=== PATIENT | male | born 1950 | race Caucasian/White ===

== ENCOUNTER 2017-12-29 17:12 | Emergency (ER) | payer SELFPAY ==
[2017-12-29 17:12] VITALS: BMI 25.8
[2017-12-29 17:55] VITALS: RESP 18; O2SAT 99
[2017-12-29] MEDS ORDERED: Sodium Chloride 0.9% 1,000 ML IV ONE (18:53)
--- NOTE | 2017-12-29 19:04 | C.PDOC ---
History Of Present Illness 67yo male with no medical history, presents to ED with complaints of abdominal pain and dark stools for the past 4 days. He also reports mild distention of his abdomen. He denies any hematemesis, fever, chills. No other complaints. also reports taking pepto bismol. Time Seen by Provider: 12/29/17 18:46 Chief Complaint (Nursing): Abdominal Pain History Per: Patient History/Exam Limitations: no limitations Onset/Duration Of Symptoms: Days (4) Current Symptoms Are (Timing): Still Present Location Of Pain/Discomfort: Diffuse Past Medical History Reviewed: Historical Data, Nursing Documentation, Vital Signs Vital Signs: Last Vital Signs Temp 98 F 12/29/17 17:52 Pulse 67 12/29/17 17:52 Resp 18 12/29/17 17:52 BP 120/81 12/29/17 17:52 Pulse Ox 99 12/29/17 19:06 - Medical History PMH: Gastritis Surgical History: No Surg Hx Family History: States: Unknown Family Hx - Social History Hx Tobacco Use: Yes Hx Alcohol Use: Yes Hx Substance Use: No - Immunization History Hx Tetanus Toxoid Vaccination: No Hx Influenza Vaccination: No Hx Pneumococcal Vaccination: No Review Of Systems Except As Marked, All Systems Reviewed And Found Negative. Constitutional: Negative for: Fever, Chills Cardiovascular: Negative for: Chest Pain Respiratory: Negative for: Shortness of Breath Gastrointestinal: Positive for: Abdominal Pain, Other (dark stools). Negative for: Hematemesis Physical Exam - Physical Exam Appears: Non-toxic Skin: Normal Color, Warm, Dry Eye(s): bilateral: Normal Inspection Neck: Normal ROM, Supple Cardiovascular: Rhythm Regular Respiratory: Normal Breath Sounds Gastrointestinal/Abdominal: Soft, Tenderness (diffuse abdominal tenderness), Distention Rectal: Other (minimal stool noted in rectal vault) Extremity: Normal ROM Neurological/Psych: Oriented x3 ED Course And Treatment - Laboratory Results Result Diagrams: 12/29/17 19:02 12/29/17 19:02 O2 Sat by Pulse Oximetry: 99 (RA) Pulse Ox Interpretation: Normal Medical Decision Making Medical Decision Making: Impression: Abdominal discomfort, guiac neg. labs imaging pending Plan: -- Labs -- IV Fluids -- Protonix 40mg IVP -- Tylenol 650mg PO 900: pt reassese abd soft nottp pain resolve.d guiac neg, bun/cr, h/h wnl, not suggestive of gi bleed. pt reports using peptobismol, possibly causing dark stool. pt asking for immediate dc does not wish to provide urine, wait in er for further eval, reassess, and obs. Disposition - Disposition Referrals: [facility] [Outside] [facility] [Outside] Parish Andrea MD [Staff Provider] - Disposition: HOME/ ROUTINE Disposition Time: 21:08 Condition: STABLE Additional Instructions: please follow up with specialsit. return to er with worsening symptoms or concerns. Instructions: Acute Abdominal Pain (DC), Constipation (DC) Forms: [employer] (Latvian) - Clinical Impression Clinical Impression: Abdominal pain - Scribe Statement The provider has reviewed the documentation as recorded by the Scribe (Charlette Haqeu) Provider Attestation: All medical record entries made by the Scribe were at my direction and personally dictated by me. I have reviewed the chart and agree that the record accurately reflects my personal performance of the history, physical exam, medical decision making, and the department course for this patient. I have also personally directed, reviewed, and agree with the discharge instructions and disposition.
[2017-12-29 19:11] LABS: BASO % 0.6 % (0.0-2.0); EOS # 0.2 K/uL (0.0-0.7); EOS % 5.6 % (0.0-4.0); HEMOGLOBIN 12.8 g/dL (12.0-18.0); LYMPH # 1.2 K/uL (1.0-4.3); MEAN CELL VOLUME 78.1 fL (80.0-94.0); MEAN CORPUSCULAR HEMOGLOBIN 25.9 pg (27.0-31.0); MEAN CORPUSCULAR HGB CONC 33.1 g/dL (33.0-37.0); MEAN PLATELET VOLUME 8.6 fL (7.2-11.7); MONO # 0.3 K/uL (0.0-0.8); MONO % 6.1 % (0.0-10.0); NEUT # 2.4 K/uL (1.8-7.0); NEUT % 57.7 % (50.0-75.0); RBC 4.94 Mil/uL (4.40-5.90); RED CELL DISTRIBUTION WIDTH 16.7 % (11.5-14.5); WHITE BLOOD COUNT 4.1 K/uL (4.8-10.8)
[2017-12-29 19:20] LABS: ALB/GLOB RATIO 1.2 (1.0-2.1); ALBUMIN 3.9 g/dL (3.5-5.0); ALT/SGPT 19 U/L (21-72); AST/SGOT 19 U/L (17-59); BLOOD UREA NITROGEN 14 mg/dL (9-20); CALCIUM 8.5 mg/dl (8.6-10.4); GFR AFRICAN-AMERICAN > 60; GFR NON-AFRICAN AMERICAN > 60; LIPASE 57 U/L (23-300)
[2017-12-29] MEDS ORDERED: Sodium Chloride 0.9% 1,000 ML ONE (19:28)
[2017-12-29] MEDS ORDERED: Iodixanol 320 MG/ML 100 ML BOTTLE IV ONE (19:57)
[2017-12-29 21:32] VITALS: BP 151/87; PULSE 58; TEMP 97.6
--- NOTE | 2017-12-30 08:34 | CT ---
PROCEDURE: CT Abdomen and Pelvis with contrast HISTORY: abd distention COMPARISON: None. TECHNIQUE: Contrast dose: 100 mL Visipaque 320 Radiation dose: Total exam DLP = 617.75 mGy-cm. This CT exam was performed using one or more of the following dose reduction techniques: Automated exposure control, adjustment of the mA and/or kV according to patient size, and/or use of iterative reconstruction technique. FINDINGS: LOWER THORAX: Bilateral dependent lower lobe atelectasis. LIVER: Unremarkable. No gross lesion or ductal dilatation. GALLBLADDER AND BILE DUCTS: Unremarkable. PANCREAS: Unremarkable. No gross lesion or ductal dilatation. SPLEEN: Unremarkable. ADRENALS: Unremarkable. No mass. KIDNEYS AND URETERS: Unremarkable. No hydronephrosis. No solid mass. VASCULATURE: Unremarkable. No aortic aneurysm. BOWEL: Mild retained feces. No bowel obstruction. No abnormal bowel loops. APPENDIX: Normal appendix. PERITONEUM: Unremarkable. No free fluid. No free air. LYMPH NODES: Unremarkable. No enlarged lymph nodes. BLADDER: Unremarkable. 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 No acute fracture. OTHER FINDINGS: None. IMPRESSION: No acute abnormality. Minor findings as above. No evidence of bowel obstruction. Preliminary interpretation of this examination was reported by [id number] at 8:51 p.m. on 12/29/2017. There is concurrence of this report with the preliminary interpretation.
== END 2017-12-29 21:32 | disposition home or self-care (01) ==
LOC: C.ER 17:12
DX: R10.9 Unspecified abdominal pain (principal)
CPT/HCPCS: 74177; 80053; 83690; 85025; 85610; 85730; 86850; 86900; 96361; 96374; 99284; C9113; G0328; J7040; Q9967